=== PATIENT | female | born 1990 | race Caucasian/White ===

== ENCOUNTER → 2017-08-29 14:17 | Observation (INO) ==
[2017-08-29 13:39] LABS: Bilirubin,Urine Negative (Negative); Blood,Urine Negative (Negative); Clarity,Urine Cloudy (Clear); Color,Urine Yellow (Yellow); Glucose,Urine (UA) Normal (Normal); Ketones,Urine Negative (Negative); Leukocyte Esterase,Urine Moderate (Negative); Nitrite,Urine Negative (Negative); PH,Urine 7.5 pH Units (5.0-8.0); Protein,Urine Negative (Neg-Trace); Specific Gravity,Urine 1.019 (1.010-1.025); Urobilinogen,Urine Normal (Normal)
[2017-08-29 13:41] LABS: Bacteria,Urine Moderate per hpf (None-Few); Hyaline Casts,Urine None Seen per lpf (None-Few); Squamous Epithelial Cell,Urine Many per lpf (None-Few); WBC,Urine 30-50 per hpf (0-3)
[2017-08-29 13:53] LABS: RBC,Urine 0-3 per hpf (0-3)
[2017-08-29 13:54] LABS: Trichomonas,Urine Present (None Seen)
[2017-08-29 14:00] LABS: Amphetamine Screen,Urine Negative ng/mL (Cutoff=1000); Barbiturate Screen,Urine Negative ng/mL (Cutoff=200); Benzodiazepines Screen,Urine Negative ng/mL (Cutoff=200); Cannabinoid Screen,Urine Negative ng/mL (Cutoff = 50); Cocaine Screen,Urine Negative ng/mL (Cutoff= 300); Opiate Screen,Urine Negative ng/mL (Cutoff=300); Phencyclidine Screen,Urine Negative ng/mL (Cutoff=25)
--- NOTE | 2017-08-29 14:03 | OB/GYN Progress Note ---
Date of Encounter: 08/29/17 Time of Encounter: 14:00 - Assessment and Plan (1) 22 weeks gestation of Current Visit: Yes Status: Acute (2) Back pain affecting in second trimester Current Visit: Yes Status: Acute UA with many squamous cells and moderate leukocytes. UA shows trichomonas. Rx flagyl given. Labs sent for gallbladder per pt request. Will call pt with results. Discharge home with precautions. (3) Nausea & vomiting Current Visit: Yes Status: Acute Rx for pepcid and zofran. Qualifiers: Vomiting type: unspecified Vomiting Intractability: non-intractable Qualified Code(s): R11.2 - Nausea with vomiting, unspecified Subjective - Subjective Interval history: 27 year-old presenting at 22w4d with c/o back pain. She reports back pain in middle back bilaterally for about 1 1/2-2 weeks. She also reports intermittent fevers although she has never checked her temperature. She states she has no appetite and throws up when she eats. She denies and leaking of fluid , cramping, vaginal bleeding, or urinary sx. She reports reqular movement. Antepartum ROS: movement normal, no loss of fluid, no vaginal bleeding, no contractions Objective - Vital Signs Vital Signs: Intake and Output 08/28/17 08/29/17 08/29/17 23:59 07:59 15:59 Other: Weight 90.3 kg Patient Weight 08/29/17 23:59 Weight 90.3 kg - Exam FHR: auscultation normal FHR comments: 140 BPM Auscultation: bilateral: normal Abdomen: Present: soft, gravid, tenderness (mild tenderness to palpation above fundus) Uterus: Present: normal. Absent: tenderness Comments: bilateral CVAT - Labs Labs: Abnormal lab results Urine Clarity Cloudy (Clear) A 08/29/17 13:20 Ur Leukocyte Esterase Moderate (Negative) H 08/29/17 13:20
[2017-08-29 14:20] LABS: Basophils # 0.1 K/mcL (0.0-0.2); Basophils % 0.4 %; Eosinophils # 0.2 K/mcL (0.0-0.6); Hematocrit 31.6 % (35.3-44.9); Hemoglobin 10.4 g/dL (11.5-15.4); Immature Granulocytes % 2.2 % (0-4); Immature Platelets 1.7 % (1.1-6.1); Lymphocytes # 2.9 K/mcL (0.6-4.6); Lymphocytes % 18.2 %; Mean Corpuscular HGB Conc 32.9 g/dL (31.6-35.5); Mean Corpuscular Hemoglobin 29.4 pg (28.0-33.3); Mean Corpuscular Volume 89.3 fL (83.0-100.0); Mean Platelet Volume 9.9 fL (9.4-12.4); Monocytes # 0.5 K/mcL (0.0-1.3); Monocytes % 3.3 %; Neutrophils # 11.8 K/mcL (1.6-8.9); Platelet Count 450 K/mcL (140-400); Red Blood Count 3.54 M/mcL (3.82-4.97); Segmented Neutrophils % 74.9 %
[2017-08-29 14:42] LABS: Albumin/Globulin Ratio 0.9 (1.1-2.2); Bilirubin,Direct 0.1 mg/dL (0.0-0.2); Bilirubin,Indirect 0.1 mg/dL (0.0-1.2); Bilirubin,Total 0.2 mg/dL (0.3-1.0); Globulin 3.3 g/dL (2.4-3.5); Total Protein 6.3 g/dL (6.4-8.9)
== END | disposition home or self-care (01) ==
LOC: 1NENULAB
PROVIDERS: ADMIT Obstetrics & Gynecology; ATTEND Obstetrics & Gynecology